=== PATIENT | male | born 1970 | race African-American/Black ===

== ENCOUNTER → 2016-10-15 | Outpatient (CLI) | payer BC ==
[2016-03-31 18:00] VITALS: BP 126/79
[~2016-10-15] MED LIST: ASPI1POW PO; HYDR-971 PO; METH4TAB2 PO
--- NOTE | 2016-10-15 14:01 | KCIC ---
Standing view bilateral knees AP view Indication: Reason For Study Reason: DJD BOTH KNEES / Spl. Instructions: / History: Both knees giving out on him. Findings: No fracture or malalignment. Joint spaces are well maintained. No periosteal reaction or focal bone lesion. Impression: Normal standing view of the knees. Electronically signed by: Taurus Gomez (Oct 15, 2016 14:00:00)
--- NOTE | 2016-10-15 14:54 | KCIC ---
PROCEDURE MRI lumbar spine without contrast. HISTORY Low back pain with right radiculopathy for about 1 year TECHNIQUE Multiplanar, multi sequential, non contrast MR imaging was performed of the lumbar spine. COMPARISON None FINDINGS Lumbar vertebral body stature and AP alignment are adequate. There is moderate to severe degenerative disc disease L5-S1. There is no significant focal marrow edema. Conus terminates normally at L1. There is mild edema associated with the L4-5 facet articulations bilaterally greater on the left, most likely reactive/degenerative in etiology. Not fully included, there is a fairly large T2 hyperintense lesion of the visualized left kidney up to at least 4.9 cm. There is a T1 and T2 hypointense lesion of the visualized right iliac bone near the sacroiliac joint on the order of 1.7 cm AP. L2-3: Neural foramina and spinal canal are adequate. L3-4: Spinal canal and neural foramina are adequate. L4-5: Spinal canal is adequate. There is mild facet degenerative change. There is mild neural foramina compromise bilaterally in part by very minimal disc osteophyte complex. L5-S1: There is posterior disc osteophyte complex and superimposed mostly central shallow protrusion. While near, there is no significant displacement of the descending S1 nerve roots. There is minimal narrowing of the central canal. Neural foramina are overall adequate. IMPRESSION 1. There is a shallow posterior protrusion at L5-S1 near descending S1 nerve roots without significant impingement. There is moderate to severe degenerative disc disease and mild spondylosis at L5-S1. 2. There is minimal neural foramina compromise bilaterally at L4-5 by disc osteophyte complex. 3. There is round focus of marrow signal abnormality of the visualized right iliac bone near the sacroiliac joint, may be due to focus of nonspecific sclerosis although otherwise cannot be accurately characterized, not fully included on all image sequences. If there is pain referable to this area, dedicated MR imaging of this area could be warranted. Electronically signed by: Tone Mancilla MD (Oct 15, 2016 14:51:57)
--- NOTE | 2016-10-15 16:33 | KCIC ---
PROCEDURE MRI study of the right knee without contrast HISTORY Degenerative osteoarthritis of the right knee. Right knee pain. Right knee gives out. TECHNIQUE Noncontrast MRI sequences of the right knee were performed in all 3 planes. COMPARISON None available. FINDINGS The anterior and posterior cruciate ligaments are intact. The quadriceps and patellar tendons are intact. Tendinosis of the distal quadriceps tendon is seen. Mild inferior retropatellar tendon bursitis is evident. No articular surface tear of the medial or lateral meniscus is seen. The medial collateral ligament is intact and no meniscal capsular separation is seen. The lateral collateral ligament complex and iliotibial band and popliteus tendon are intact. No posterior lateral corner injury is seen. No bone contusion or fracture or marrow infiltrative process is seen. There is mild degenerative spurring of the medial and lateral tibiofemoral joint compartments. No significant osteochondral abnormality of the medial or lateral tibiofemoral joint compartment is evident. There is moderate chondromalacia patellae involving the lateral patellar facet and apex. 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 Mild degenerative spurring of the patellofemoral joint compartment is seen. The patella is normally aligned. The medial and lateral retinacular ligaments are intact. No muscle edema is evident. No distended Pierce's cyst is seen. A small knee joint effusion is seen. No loose osteochondral body is evident. IMPRESSION No ligament or tendon or meniscal tear is seen. Distal quadriceps tendinosis. Mild inferior retropatellar tendon bursitis. Chondromalacia patellae and trochlear chondromalacia. Electronically signed by: Marco Munoz MD (Oct 15, 2016 16:32:22)
== END | disposition home or self-care (01) ==
LOC: KCIC MRI 13:33
PROVIDERS: ATTEND Physical Medicine & Rehabilitation
DX: M17.0 Bilateral primary osteoarthritis of knee (principal); M54.5 Low back pain; M54.16 Radiculopathy, lumbar region; M51.37 Other intervertebral disc degeneration, lumbosacral region; M47.897 Other spondylosis, lumbosacral region
CPT/HCPCS: 72148; 73565; 73721

== ENCOUNTER 2018-02-02 23:43 | Emergency (ER) | payer SELFPAY, BC ==
[2018-02-03] MEDS: IV NORMAL SALINE 1000ML BAG 1,000 ML IV (00:25)
[2018-02-03] MEDS: KETOROLAC 30 MG/ML INJ. IV (00:25)
[2018-02-03] MEDS: PROCHLORPERAZINE 10 MG/2 ML VIAL. IV (00:26)
[2018-02-03] MEDS: diphenhydrAMINE 50 MG/ML VIAL IVP (00:26)
== END 2018-02-03 02:20 | disposition home or self-care (01) ==
LOC: ER 23:43
DX: R51 Headache (principal); H57.12 Ocular pain, left eye; H53.142 Visual discomfort, left eye
CPT/HCPCS: 96361; 96374; 96375; 99284-25; J0780; J1200; J1885; J7030

== ENCOUNTER 2020-05-07 07:20 | Emergency (ER) | payer SELFPAY ==
[~2020-05-07] VITALS: Ht 167.6 cm; Wt 93.1 kg
[~2020-05-07 07:20] MED LIST changes: +HYDR-3164 PO; -HYDR-971 PO; +SUMA50TA3 PO
--- NOTE | 2020-05-07 08:10 | PHYS DOC ---
Past Medical History Past Medical History: Seizure Additional Past Medical Histor: seizures in past no longer on medications Past Surgical History: No Surgical History Smoking Status: Current Every Day Smoker Alcohol Use: Heavy Drug Use: None General Adult EDM: Chief Complaint: HEADACHE HPI: HPI: Patient is a 49 year old male who presented to ER today for evaluation of headache that he been experiencing for several months. Patient says sometimes when he has a headache he has the nasal congestion, headache is mostly located on the left side of his head. It is throbbing in nature. Patient denies any fever, no neck pain, no abdominal pain, no nausea vomiting. Patient denies any blurred vision. Review of Systems: Review of Systems: Constitutional: Denies fever or chills. [] Eyes: Denies change in visual acuity. [] HENT: Denies nasal congestion or sore throat. [] Respiratory: Denies cough or shortness of breath. [] Cardiovascular: Denies chest pain or edema. [] GI: Denies abdominal pain, nausea, vomiting, bloody stools or diarrhea. [] : Denies dysuria. [] Musculoskeletal: Denies back pain or joint pain. [] Integument: Denies rash. [] Neurologic: Positive for headache, no focal weakness or numbness. Endocrine: Denies polyuria or polydipsia. [] Lymphatic: Denies swollen glands. [] Psychiatric: Denies depression or anxiety. [] Heart Score: Risk Factors: Risk Factors: DM, Current or recent (<one month) smoker, HTN, HLP, family history of CAD, obesity. Risk Scores: Score 0 - 3: 2.5% MACE over next 6 weeks - Discharge Home Score 4 - 6: 20.3% MACE over next 6 weeks - Admit for Clinical Observation Score 7 - 10: 72.7% MACE over next 6 weeks - Early Invasive Strategies Allergies: Allergies: Allergies Coded Allergies Type Severity Reaction Last Updated Verified No Known Drug Allergies 01/09/14 No Physical Exam: PE: Constitutional: Well developed, well nourished, no acute distress, non-toxic appearance. [] HENT: Normocephalic, atraumatic, bilateral external ears normal, oropharynx moist, no oral exudates, nose normal. Bilateral frontal sinuses tender to palpation bilateral maxillary sinus tender to palpation. Eyes: PERRLA, EOMI, conjunctiva normal, no discharge. [] Neck: Normal range of motion, no tenderness, supple, no stridor. [] Cardiovascular:Heart rate regular rhythm, no murmur [] Lungs & Thorax: Bilateral breath sounds clear to auscultation [] Abdomen: Bowel sounds normal, soft, no tenderness, no masses, no pulsatile mass es. [] Skin: Warm, dry, no erythema, no rash. [] Back: No tenderness, no CVA tenderness. [] Extremities: No tenderness, no cyanosis, no clubbing, ROM intact, no edema. [] Neurologic: Alert and oriented X 3, normal motor function, normal sensory function, no focal deficits noted. [] Psychologic: Affect normal, judgement normal, mood normal. [] Current Patient Data: Vital Signs: Vital Signs Date Time Temp Pulse Resp B/P (MAP) Pulse Ox O2 Delivery O2 Flow Rate FiO2 05/07/20 07:35 97.2 49 17 147/93 (111) 100 Room Air 97.2 EKG: EKG: [] Radiology/Procedures: Radiology/Procedures: [][facility] [address] [place] [address] IMAGING REPORT Signed PATIENT: VENU HEIN TACCOUNT: [id number] : 1970 LOCATION: ER AGE: 49 SEX: M EXAM STATUS: REG ER ORD. PHYSICIAN: FRANK HANSON DO REASON: HEADACHE FOR TWO MONTHS, MOSTLY ON LEFT SIDE PROCEDURE: CT HEAD WO CONTRAST CT HEAD INDICATION: Reason: HEADACHE FOR TWO MONTHS, MOSTLY ON LEFT SIDE / Spl. Instructions: / History: COMPARISON: 03/31/2016. Exposure: One or more of the following individualized dose reduction techniques were utilized for this examination: 1. Automated exposure control 2. Adjustment of the mA and/or kV according to patient size 3. Use of iterative reconstruction technique TECHNIQUE: 5 mm contiguous axial images were obtained from the skull base to the vertex in both bone and soft tissue algorithm. FINDINGS: No abnormal attenuation within the brain parenchyma. No evidence of acute intracranial hemorrhage. No extra-axial fluid collections. No mass effect or midline shift. Ventricular size is appropriate. Basal cisterns are patent. No fractures identified.Snowden-white differentiation is preserved.Globes and orbits are within normal limits. Paranasal sinuses and mastoid air cells are clear. IMPRESSION: 1. No acute intracranial findings. Electronically signed by: Luis Alberto Leos MD (05/07/2020 8:39 AM) [id number] DICTATED and SIGNED BY: LUIS ALBERTO LEOS MD DATE: 05/07/20 0839 Course & Med Decision Making: Course & Med Decision Making Pertinent Labs and Imaging studies reviewed. (See chart for details) Patient is a 49-year-old male who presented to ER with headaches off and on for several week. Patient CT scan head was normal. Patient felt much better. Patient had no fever, no neck pain, no neck stiffness. There is no evidence of meningitis. Patient will be discharged home. Dragon Disclaimer: Dragon Disclaimer: This electronic medical record was generated, in whole or in part, using a voice recognition dictation system. Departure Departure Impression: Primary Impression: Headache Disposition: 01 HOME, SELF-CARE Condition: IMPROVED Referrals: DORON CANDELARIA JR, MD (PCP) please follow up with your doctor as needed next week Patient Instructions: Cluster Headache Additional Instructions: Thank you for visiting our Emergency Department. We appreciate you trusting us with your care. If any additional problems come up don't hesitate to return to visit us. Please follow up with your primary care provider so they can plan additional care if needed and know about the problem that you had. If symptoms worsen come back to the Emergency Department. Any concerning symptoms that start such as chest pain, shortness of air, weakness or numbness on one side of the body, running high fevers or any other concerning symptoms return to the ER. Scripts Butalbital/Aspirin/Caffeine (FIORINAL 50-325-40 MG CAPSULE) 1 Each Capsule 1 EACH PO QID PRN for HEADACHE, #30 CAP Prov: FRANK HANSON DO 05/07/20 FRANK HANSON DO May 07, 2020 08:10
--- NOTE | 2020-05-07 08:42 | RAD ---
CT HEAD INDICATION: Reason: HEADACHE FOR TWO MONTHS, MOSTLY ON LEFT SIDE / Spl. Instructions: / History: COMPARISON: 03/31/2016. Exposure: One or more of the following individualized dose reduction techniques were utilized for this examination: 1. Automated exposure control 2. Adjustment of the mA and/or kV according to patient size 3. Use of iterative reconstruction technique TECHNIQUE: 5 mm contiguous axial images were obtained from the skull base to the vertex in both bone and soft tissue algorithm. FINDINGS: No abnormal attenuation within the brain parenchyma. No evidence of acute intracranial hemorrhage. No extra-axial fluid collections. No mass effect or midline shift. Ventricular size is appropriate. Basal cisterns are patent. No fractures identified.Snowden-white differentiation is preserved.Globes and orbits are within normal limits. Paranasal sinuses and mastoid air cells are clear. IMPRESSION: 1. No acute intracranial findings. Electronically signed by: Luis Alberto Leos MD (05/07/2020 8:39 AM) [id number]
[2020-05-07] MEDS ORDERED: methylPREDNISolone SOD SUCC PF 125 MG/2 ML VIAL. IV ONE (08:45)
[2020-05-07] MEDS ORDERED: KETOROLAC 30 MG/ML VIAL. IVP ONE (08:45)
[2020-05-07 10:00] VITALS: BP 164/95
[2020-05-07] MEDS ORDERED: BUTA1CAP31 PO (10:13)
== END 2020-05-07 10:25 | disposition home or self-care (01) ==
LOC: ER 07:20
DX: R51.9 Headache, unspecified (principal); R09.81 Nasal congestion; F17.200 Nicotine dependence, unspecified, uncomplicated
CPT/HCPCS: 70450; 96374; 96375; 99285; J1885; J2930